=== PATIENT | male | born 1945 | race Two or more races ===

== ENCOUNTER 2021-02-27 16:18 | Emergency (ER) | payer BC ==
[~2021-02-27] VITALS: Ht 177.8 cm; Wt 77.5 kg
[2021-02-27] MEDS ORDERED: ASPIRIN (16:24)
[2021-02-27 18:28] LABS: BASOPHILS % 0.8 % (0.0-2.0); HEMATOCRIT. 47.5 % (42.0-52.0); LYMPHOCYTES % 15.2 % (20.0-50.0); MEAN CORPUSCULAR VOLUME 97.6 fL (80.0-94.0); MEAN PLATELET VOLUME 8.5 fl (7.4-10.4); MONOCYTES % 9.3 % (2.0-8.0); NEUTROPHILS % 71.7 % (40.0-76.0); PLATELET 201 x1000/uL (130-400); RED BLOOD CELL COUNT 4.86 mill/uL (4.7-6.1); RED CELL DISTRIBUTION WIDTH 14.5 % (11.6-14.6)
[2021-02-27 18:35] LABS: CHLORIDE 109 mEq/L (98-107)
[2021-02-27] MEDS ORDERED: P50 MT (19:31)
[2021-02-27 19:40] VITALS: BP 131/79
== END 2021-02-27 19:54 | disposition home or self-care (01) ==
LOC: ER 16:18
DX: J44.9 Chronic obstructive pulmonary disease, unspecified (principal); I10 Essential (primary) hypertension
CPT/HCPCS: 36415; 71045; 80053; 83880; 84484; 85025; 93005; 99285